=== PATIENT | female | born 1960 | race American Indian/Alaskan Native ===

== ENCOUNTER 2020-10-11 09:01 | Outpatient (CLI) | payer OTHER ==
--- NOTE | 2020-10-11 10:03 | XRay Report ---
CERVICAL SPINE HISTORY: Pain. COMPARISON: None. TECHNIQUE: 3 view(s) of the cervical spine obtained. FINDINGS: Vertebrae: Loss of normal cervical lordosis with straightening of the cervical spine. This may be rel ated to patient positioning or muscle spasm. No evidence of vertebral body fracture or subluxation. Disc Spaces:Moderate to severe degenerative change spanning C4-C7 with findings worse at C5/C6 where there is prominent endplate osteophytosis and suspected uncovertebral joint hypertrophy. Facet Joints:No significant abnormality. Prevertebral Soft Tissues:No significant abnormality. Additional findings: None. IMPRESSION: Cervical spine without evidence of acute osseous injury. Moderate to severe degenerative change spanning C4-C7 with findings worse at C5/C6. If pain persists, an MRI may be considered for further evaluation. Straightening of the cervical spine may be related to patient positioning or muscle spasm. Signer Name: Shayne Srinivasan MD Signed: 10/11/2020 9:59 AM Workstation Name: [id number]
--- NOTE | 2020-10-11 10:06 | XRay Report ---
LUMBAR SPINE HISTORY: Pain COMPARISON: None. TECHNIQUE: 3 view(s) of the lumbar spine obtained. FINDINGS: Vertebrae: There is slight dextroconvex curvature centered at L3. No evidence of vertebral body fract ure or subluxation. Disc Spaces:Multilevel areas of moderate degenerative change with findings most pronounced in the low er lumbar spine spanning L4-L5 and to a lesser extent L5-S1.. Facet Joints:Moderate facet arthropathy. Prevertebral Soft Tissues:No significant abnormality. Additional findings: Diffuse osteopenia. IMPRESSION: Lumbar spine without evidence of acute osseous injury. Moderate degenerative change is worse within the lower lumbar spine at L4-L5 and to a lesser extent L 5-S1. Slight dextroconvex curvature centered at L3. Signer Name: Shayne Sriinvasan MD Signed: 10/11/2020 10:02 AM Workstation Name: [id number]
== END 2020-10-11 09:02 | disposition home or self-care (01) ==
LOC: XRAY 09:01
PROVIDERS: ATTEND Internal Medicine
DX: M47.816 Spondylosis without myelopathy or radiculopathy, lumbar region (principal); M47.812 Spondylosis without myelopathy or radiculopathy, cervical region
CPT/HCPCS: 72040; 72100

== ENCOUNTER 2020-12-15 09:49 | Outpatient (CLI) | payer OTHER ==
--- NOTE | 2020-12-15 11:01 | XRay Report ---
Cervical spine-4 views Lumbar spine-3 views INDICATION: BACK PAIN. COMPARISON: None. IMPRESSION: Normal cervical spine alignment. Mild levoscoliosis centered at T9/10 and there is also grade 1 anterolisthesis of L5 on S1 in the lumbar spine. 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 No acute osseous or soft tissue abnormality. Signer Name: Gregory Jain MD Signed: 12/15/2020 10:57 AM Workstation Name: [id number]
== END 2020-12-15 09:50 | disposition home or self-care (01) ==
LOC: XRAY 09:49
PROVIDERS: ATTEND Internal Medicine
DX: M47.812 Spondylosis without myelopathy or radiculopathy, cervical region (principal); I10 Essential (primary) hypertension; R18.8 Other ascites; J90 Pleural effusion, not elsewhere classified; N19 Unspecified kidney failure; M47.816 Spondylosis without myelopathy or radiculopathy, lumbar region
CPT/HCPCS: 72040; 72100